=== PATIENT | female | born 1965 | race Caucasian/White ===

== ENCOUNTER 2020-08-17 08:10 | Inpatient (IN) | payer BC, MEDICAID, OTHER ==
[~2020-08-17] VITALS: Ht 157.5 cm; Wt 74.5 kg
--- NOTE | 2020-08-17 08:37 | NUR ---
PT TO ROOM IN WHEELCHAIR. PT CHANGED TO JENNIEN
--- NOTE | 2020-08-17 09:33 | NUR ---
UA CATH PER . SENT TO LAB
[2020-08-17 09:39] LABS: MEAN CORPUSCULAR HEMOGLOBIN 28.2 pg (27.0-34.8); MEAN CORPUSCULAR HGB CONC 32.5 g/dL (32.4-35.8); MEAN PLATELET VOLUME 10.3 fL (7.4-10.4); PLATELET COUNT 129 x10^3/uL (130-400); RED BLOOD COUNT 4.07 x10^6/uL (3.82-5.3); RED CELL DISTRIBUTION WIDTH 14.6 % (9.6-15.2)
[2020-08-17 09:53] LABS: ALBUMIN 3.5 g/dL (3.4-5.0); ANION GAP 6 mmol/L (5-15); CALCIUM 9.1 mg/dL (8.5-10.1); CHLORIDE 108 mmol/L (98-107)
[2020-08-17 09:56] LABS: ALANINE AMINOTRANSFERASE 14 U/L (12-78); ALKALINE PHOSPHATASE 53 U/L (45-117); BILIRUBIN,TOTAL 1.3 mg/dL (0.2-1.0); CREATININE 1.74 mg/dL (0.55-1.02); TOTAL PROTEIN 7.4 g/dL (6.4-8.2)
--- NOTE | 2020-08-17 10:01 | NUR ---
US IN PROGRESS BHARGAVI OIL DIPPER IN ROOM
[2020-08-17 10:05] LABS: MD YES
[2020-08-17 10:07] LABS: BAND#(MANUAL) 2.31 x10^3/uL; BANDS%(MANUAL) 17 % (0-7); LYMPH#(MANUAL) 0.54 x10^3/uL (1-3.4); LYMPHS% (MANUAL) 4 % (22-44); METAMYELOCYTES# (MANUAL) 0.14 x10^3/uL (0-0); METAMYELOCYTES% (MANUAL) 1 % (0-1); MONOS#(MANUAL) 0.54 x10^3/uL (0.3-2.7); MONOS% (MANUAL) 4 % (2-9); SEG#(MANUAL) 10.06 x10^3/uL (1.8-6.8); SEGS% (MANUAL) 74 % (42-75)
[2020-08-17 10:08] LABS: <RBC MORPHOLOGY> NORMAL
[2020-08-17 10:09] LABS: <PLATELET ESTIMATE> DECREASED; <PLT MORPHOLOGY> NORMAL PLT MORPH
[2020-08-17] MEDS ORDERED: SODIUM CHLORIDE FLUSH 10ML SYR IVF ONE (10:30)
[2020-08-17] MEDS ORDERED: SODIUM CHLORIDE 0.9% 1,000ML IVBOLUS ONE (10:30)
[2020-08-17] MEDS ORDERED: SODIUM CHLORIDE 0.9%, 500ML IVBOLUS ONE (10:30)
[2020-08-17] MEDS ORDERED: CEFTRIAXONE PMX 1GM/50ML 50 ML IV ONE (10:30)
[2020-08-17 10:31] LABS: MICROSCOPIC INDICATED
[2020-08-17] MEDS ORDERED: CEFTRIAXONE PMX 1GM/50ML 50 ML ONE (10:47)
[2020-08-17] MEDS: PIPERONYL BUTOXIDE/PYRETHRINS SHAMPOO TP SCH (11:30)
[2020-08-17] MEDS ORDERED: PERMETHRIN CRM 5%, 60GM TP SCH (11:30)
--- NOTE | 2020-08-17 11:52 | NUR ---
PT TO CT
--- NOTE | 2020-08-17 12:01 | NUR ---
PT UPDATED TO PLAN OF CARE
--- NOTE | 2020-08-17 12:57 | NUR ---
HOSPITALIST IN ROOM WITH PT.
[2020-08-17] MEDS ORDERED: morphine SULFATE 10 MG/ML, 1ML IVPush PRN (13:30)
[2020-08-17] MEDS ORDERED: KETOROLAC 30 MG/1 ML IV PRN (13:30)
[2020-08-17] MEDS ORDERED: ENALAPRILAT 1.25 MG/ML, 2ML IVPush PRN (13:30)
[2020-08-17] MEDS ORDERED: ACETAMINOPHEN 325 MG TABLET PO PRN ×2 (13:30→17:30)
[2020-08-17] MEDS ORDERED: ONDANSETRON 2MG/ML, 2ML IVPush PRN ×2 (13:30→17:30)
--- NOTE | 2020-08-17 13:50 | NUR ---
PT RESTING COMFORTABLY ON GURNEY. CHIDI.
--- NOTE | 2020-08-17 14:35 | NUR ---
REPORT GIVEN TO MARAH RN IN OR.
[2020-08-17] MEDS ORDERED: FENTANYL PF 100 MCG/2ML ONE (16:12)
[2020-08-17] MEDS ORDERED: MIDAZOLAM 1 MG/ML, 2ML ONE (16:12)
[2020-08-17] MEDS ORDERED: PROPOFOL 10 MG/ML, 20ML ONE (16:13)
[2020-08-17] MEDS ORDERED: MEPERIDINE/PF 25MG/ML,1ML ONE (17:15)
[2020-08-17] MEDS: MEPERIDINE/PF 25MG/0.5ML IVPush PRN ×2 (17:19→19:46)
[2020-08-17] MEDS ORDERED: FENTANYL PF 100 MCG/2ML IV PRN (17:30)
[2020-08-17] MEDS ORDERED: PROMETHAZINE 25 MG/ML, 1ML IVPush PRN (17:30)
[2020-08-17] MEDS ORDERED: DIPHENHYDRAMINE 50 MG/ML, 1ML IVPush PRN (17:30)
[2020-08-17] MEDS ORDERED: OXYcodone 5 MG/5 ML ORAL.SOL UDC PO PRN (17:30)
[2020-08-17] MEDS ORDERED: HYDROmorphone 1 MG/ML, 1ML INJ IVPush PRN (17:30)
[2020-08-17] MEDS ORDERED: DIAZEPAM 5 MG/ML, 2ML IVPush PRN (17:30)
[2020-08-17 19:22] VITALS: BP 95/58
[2020-08-17] MEDS: LACTATED RINGERS 1,000 ML IV SCH ×2 (19:43→23:41)
[2020-08-17] MEDS ORDERED: LEVO25PO PO (22:14)
[2020-08-17] MEDS ORDERED: [UNRECOGNIZED DRUG - CODE] PO (22:14)
[2020-08-17] MEDS ORDERED: ARIP300S PO (22:14)
[2020-08-18] MEDS: LACTATED RINGERS 1,000 ML IV SCH ×3 (02:05→23:22)
[2020-08-18 02:52] VITALS: BP 81/50
[2020-08-18] MEDS: PIPERONYL BUTOXIDE/PYRETHRINS SHAMPOO TP SCH (02:56)
[2020-08-18] MEDS: MEROPENEM 1 GM in SODIUM CHLORIDE 0.9% 100 ML IV SCH ×2 (03:43→16:52)
[2020-08-18 05:14] LABS: ANION GAP 8 mmol/L (5-15); CALCIUM 8.2 mg/dL (8.5-10.1); CHLORIDE 110 mmol/L (98-107)
[2020-08-18 05:15] LABS: CREATININE 2.11 mg/dL (0.55-1.02)
[2020-08-18 05:18] LABS: MEAN CORPUSCULAR HEMOGLOBIN 28.5 pg (27.0-34.8); MEAN CORPUSCULAR HGB CONC 32.7 g/dL (32.4-35.8); MEAN PLATELET VOLUME 10.6 fL (7.4-10.4); PLATELET COUNT 90 x10^3/uL (130-400); RED BLOOD COUNT 3.41 x10^6/uL (3.82-5.3); RED CELL DISTRIBUTION WIDTH 14.9 % (9.6-15.2)
[2020-08-18 06:09] LABS: MD YES
[2020-08-18 06:12] LABS: BAND#(MANUAL) 1.84 x10^3/uL; BANDS%(MANUAL) 16 % (0-7); METAMYELOCYTES# (MANUAL) 0.69 x10^3/uL (0-0); METAMYELOCYTES% (MANUAL) 6 % (0-1); MONOS#(MANUAL) 0.58 x10^3/uL (0.3-2.7); MONOS% (MANUAL) 5 % (2-9); SEGS% (MANUAL) 73 % (42-75)
[2020-08-18 06:13] LABS: <PLATELET ESTIMATE> DECREASED; <RBC MORPHOLOGY> NORMAL
[2020-08-18 06:14] LABS: <PLT MORPHOLOGY> NORMAL PLT MORPH; PMNS WITH VACUOLES 1+
[2020-08-18] MEDS: LEVOTHYROXINE 25 MCG TABLET PO SCH (06:24)
[2020-08-18 07:24] VITALS: BP 85/55
[2020-08-18 11:16] VITALS: BP 100/62
[2020-08-18] MEDS: ARIPIPRAZOLE 10 MG TABLET PO SCH (11:17)
[2020-08-18 12:40] VITALS: BP 94/58
[2020-08-18] MEDS ORDERED: CEFTRIAXONE PMX 1GM/50ML 50 ML IV SCH (13:30)
[2020-08-18] MEDS: LOPERAMIDE 2 MG CAPSULE PO SCH ×2 (17:50→23:22)
[2020-08-18 20:18] VITALS: BP 109/67
[2020-08-19 04:18] VITALS: BP 118/73
[2020-08-19] MEDS: LEVOTHYROXINE 25 MCG TABLET PO SCH (04:53)
[2020-08-19] MEDS: LOPERAMIDE 2 MG CAPSULE PO SCH ×3 (04:54→22:02)
[2020-08-19] MEDS ORDERED: MEROPENEM 500 MG in SODIUM CHLORIDE 0.9% 100 ML IV SCH (05:00)
[2020-08-19 06:41] VITALS: BP 116/74
[2020-08-19 09:16] LABS: MEAN CORPUSCULAR HEMOGLOBIN 28.5 pg (27.0-34.8); MEAN CORPUSCULAR HGB CONC 32.9 g/dL (32.4-35.8); MEAN PLATELET VOLUME 10.3 fL (7.4-10.4); PLATELET COUNT 89 x10^3/uL (130-400); RED BLOOD COUNT 3.25 x10^6/uL (3.82-5.3); RED CELL DISTRIBUTION WIDTH 14.7 % (9.6-15.2)
[2020-08-19] MEDS: ARIPIPRAZOLE 10 MG TABLET PO SCH (09:27)
[2020-08-19] MEDS: LACTATED RINGERS 1,000 ML IV SCH ×2 (09:28→20:22)
[2020-08-19 09:30] LABS: ALANINE AMINOTRANSFERASE 14 U/L (12-78); ALBUMIN 2.3 g/dL (3.4-5.0); ANION GAP 7 mmol/L (5-15); CALCIUM 8.3 mg/dL (8.5-10.1); CHLORIDE 110 mmol/L (98-107); CREATININE 0.87 mg/dL (0.55-1.02)
[2020-08-19 09:31] LABS: ALKALINE PHOSPHATASE 53 U/L (45-117); BILIRUBIN,TOTAL 0.6 mg/dL (0.2-1.0); TOTAL PROTEIN 5.7 g/dL (6.4-8.2)
[2020-08-19 09:37] LABS: MD YES
[2020-08-19 09:39] LABS: <PLATELET ESTIMATE> DECREASED; <PLT MORPHOLOGY> NORMAL PLT MORPH; <RBC MORPHOLOGY> NORMAL; BAND#(MANUAL) 0.09 x10^3/uL; BANDS%(MANUAL) 1 % (0-7); EOS#(MANUAL) 0.26 x10^3/uL (0.0-0.4); EOS% (MANUAL) 3 % (1-7); LYMPH#(MANUAL) 0.17 x10^3/uL (1-3.4); LYMPHS% (MANUAL) 2 % (22-44); MONOS#(MANUAL) 0.43 x10^3/uL (0.3-2.7); MONOS% (MANUAL) 5 % (2-9); SEG#(MANUAL) 7.65 x10^3/uL (1.8-6.8); SEGS% (MANUAL) 89 % (42-75)
[2020-08-19 11:57] VITALS: BP 112/70
[2020-08-19] MEDS ORDERED: POTASSIUM CHLORIDE 20 MEQ TAB.ER.PRT PO ONE (15:00)
[2020-08-19] MEDS: MEROPENEM 1 GM in SODIUM CHLORIDE 0.9% 100 ML IV SCH (17:28)
[2020-08-19 19:55] VITALS: BP 114/77
[2020-08-20] MEDS: MEROPENEM 1 GM in SODIUM CHLORIDE 0.9% 100 ML IV SCH ×2 (01:58→09:38)
[2020-08-20 02:02] VITALS: BP 107/66
[2020-08-20 05:48] LABS: BASOPHILS % (AUTO) 1 % (0-1); EOSINOPHILS % (AUTO) 3 % (1-7); LYMPHOCYTES % (AUTO) 12 % (22-44); MEAN CORPUSCULAR HEMOGLOBIN 28.4 pg (27.0-34.8); MEAN CORPUSCULAR HGB CONC 33.1 g/dL (32.4-35.8); MEAN PLATELET VOLUME 10.1 fL (7.4-10.4); MONOCYTES % (AUTO) 10 % (2-9); NEUTROPHILS % (AUTO) 75 % (42-75); PLATELET COUNT 92 x10^3/uL (130-400); RED BLOOD COUNT 3.45 x10^6/uL (3.82-5.3); RED CELL DISTRIBUTION WIDTH 14.6 % (9.6-15.2)
[2020-08-20 06:01] LABS: ANION GAP 5 mmol/L (5-15); CALCIUM 8.1 mg/dL (8.5-10.1); CHLORIDE 109 mmol/L (98-107)
[2020-08-20 06:03] LABS: CREATININE 0.67 mg/dL (0.55-1.02)
[2020-08-20 06:10] LABS: MD NO
[2020-08-20] MEDS: LEVOTHYROXINE 25 MCG TABLET PO SCH (06:18)
[2020-08-20] MEDS: LACTATED RINGERS 1,000 ML IV SCH (06:18)
[2020-08-20] MEDS: LOPERAMIDE 2 MG CAPSULE PO SCH ×2 (09:38→16:34)
[2020-08-20] MEDS: ARIPIPRAZOLE 10 MG TABLET PO SCH (09:38)
[2020-08-20 09:40] VITALS: BP 118/75
[2020-08-20 13:26] VITALS: BP 126/85
[2020-08-20] MEDS ORDERED: ARIP10TA33 PO (15:36)
[2020-08-20] MEDS ORDERED: LEVO750T6 PO (15:36)
[2020-09-14] MEDS ORDERED: ARIPIPRAZOLE 300 MG PO SCH (09:00)
== END 2020-08-20 16:56 | disposition home or self-care (01) | DRG 853 ==
LOC: ED 08:41 → SUATTDRO 12:45 → EDIP 13:02 → 4NW 19:35
PROVIDERS: ADMIT Hospitalist; ATTEND Hospitalist
PROC: 0T778DZ Dilation of Left Ureter with Intraluminal Device, Via Natural or Artificial Opening Endoscopic (ICD-10-PCS; 2020-08-17)
PROC: 0TC78ZZ Extirpation of Matter from Left Ureter, Via Natural or Artificial Opening Endoscopic (ICD-10-PCS; principal; 2020-08-17 15:00)
DX: A41.51 Sepsis due to Escherichia coli [E. coli] (principal); N17.0 Acute kidney failure with tubular necrosis; N13.6 Pyonephrosis; B85.2 Pediculosis, unspecified; B96.20 Unspecified Escherichia coli [E. coli] as the cause of diseases classified elsewhere; D64.9 Anemia, unspecified; D69.6 Thrombocytopenia, unspecified; E03.9 Hypothyroidism, unspecified; E87.6 Hypokalemia; F25.9 Schizoaffective disorder, unspecified; J45.909 Unspecified asthma, uncomplicated; Z20.828 Contact with and (suspected) exposure to other viral communicable diseases; R65.20 Severe sepsis without septic shock; Z87.442 Personal history of urinary calculi
CPT/HCPCS: 36415; 74176; 76830; 80048; 80053; 81001; 82360; 83605; 83690; 85014; 85018; 85025; 87040; 87077; 87086; 87186; 87635; 88300; 93005; 96365; 99285; C1726; G0378; J0696; J2175; J2185; J2250; J2704; J3010; C1758; C1769; C2617; J7030; J7040; J7120